=== PATIENT | female | born 1945 | race Caucasian/White ===

== ENCOUNTER → 2017-05-01 | Outpatient (CLI) | payer MEDICARE ==
[~2017-05-01] MED LIST: ALBU90AE INHALATION; ASPI81TA3 PO; ATOR80TA75 PO; BUDE6HFA INHALATION; CARV3.12 PO; CLOP75TA27 PO; FURO40TA4 PO; LACT1CAP57 PO; LEVO75TA84 PO; LISI-313 PO; NICO1PAT6 TD; NITR0.4T39 SL; SPIR25TA PO; TIOT18CA INHALATION; ZOLP5TAB PO
[2017-05-01 10:44] LABS: ABNORMAL IP MESSAGE 1; BASOPHIL # 0.1 10^3/ul (0.0-0.1); BASOPHILS % 0.7 % (0.0-2.0); EOSINOPHILS # 0.6 10^3/ul (0.0-0.5); EOSINOPHILS % 4.5 % (0.0-7.0); HEMATOCRIT 38.3 % (37.0-47.0); HEMOGLOBIN 11.4 g/dl (12.0-16.0); LYMPHOCYTES # 1.8 10^3/ul (0.8-2.9); LYMPHOCYTES % 14.7 % (15.0-51.0); MEAN CORPUSCULAR HEMOGLOBIN 20.8 pg (29.0-33.0); MEAN CORPUSCULAR HGB CONC 29.8 g/dl (32.0-37.0); MEAN CORPUSCULAR VOLUME 69.9 fl (82.0-101.0); MEAN PLATELET VOLUME 10.8 fl (7.4-10.4); MONOCYTE # 1.6 10^3/ul (0.3-0.9); MONOCYTES % 12.7 % (0.0-11.0); NEUTROPHIL # 8.3 10^3/ul (1.6-7.5); NEUTROPHILS % 67.1 % (39.0-77.0); PLATELET COUNT 264 10^3/UL (140-415); RED BLOOD COUNT 5.48 10^6/ul (4.20-5.40); RED CELL DISTRIBUTION WIDTH 22.2 % (11.5-14.5); WHITE BLOOD COUNT 12.4 10^3/ul (4.8-10.8)
[2017-05-01 10:57] LABS: POSITIVE DIFF @See below
[2017-05-03 12:06] LABS: AADO2 Arterial 50.8 mmHg (7.0-24.0); Allen Test ACCEPTAB; Arterial Base Excess -1.4 mmol/L (-3.0-3); Arterial COHb 2.5 % (0.0-3.0); Arterial HCO3 23.1 mmol/L (22.0-26.0); Arterial MetHb 0.1 % (0.0-1.5); Arterial Total Hemglobin 12.5 g/dl (12.0-18.0); MODE ROOM AIR
== END | disposition home or self-care (01) ==
LOC: LAB 09:42
PROVIDERS: ATTEND Neuromusculoskeletal Medicine, Sports Medicine
DX: R05 Cough (principal); I25.10 Atherosclerotic heart disease of native coronary artery without angina pectoris
CPT/HCPCS: 83880; 85025